=== PATIENT | female | born 1975 | race African-American/Black ===

== ENCOUNTER 2020-11-25 10:28 | Day surgery (SDC) | payer BC ==
[2020-11-21 11:23] VITALS: BMI 41.0
[2020-11-25] MEDS ORDERED: MIDAZOLAM HCL 2 MG/2 ML SINGLE DOSE VIAL ONE (11:07)
[2020-11-25 12:30] VITALS: BP 134/77; PULSE 88; TEMP 97.8
== END 2020-11-25 12:35 | disposition home or self-care (01) ==
LOC: FASU-ENDO 10:28
PROVIDERS: ATTEND Internal Medicine Gastroenterology
PROC: 0DB98ZX Excision of Duodenum, Via Natural or Artificial Opening Endoscopic, Diagnostic (ICD-10-PCS; 2020-11-25)
PROC: 0DB68ZX Excision of Stomach, Via Natural or Artificial Opening Endoscopic, Diagnostic (ICD-10-PCS; 2020-11-25)
PROC: 0DJD8ZZ Inspection of Lower Intestinal Tract, Via Natural or Artificial Opening Endoscopic (ICD-10-PCS; principal; 2020-11-25 11:26)
DX: Z12.11 Encounter for screening for malignant neoplasm of colon (principal); Z83.71 Family history of colonic polyps; K29.50 Unspecified chronic gastritis without bleeding; K29.80 Duodenitis without bleeding
CPT/HCPCS: 84703; 88305-TC; 88342-TC